=== PATIENT | male | born 1995 | race Caucasian/White ===

== ENCOUNTER 2016-09-10 18:52 | Emergency (ER) | payer MEDICAID ==
[2016-09-10] MEDS ORDERED: DIPH/PERTUSS(ACELL)/TETANUS VAC/PF 0.5 ML SYR (>=10YO) IM ONE (19:42)
[2016-09-10] MEDS ORDERED: HYDROCODONE/ACETAMINOPHEN 5-325 MG TABLET PO ONE (19:43)
--- NOTE | 2016-09-10 19:54 | ER Document Report ---
ED Wound - General Chief Complaint: Laceration Stated Complaint: LEFT HAND INJURY Time Seen by Provider: 09/10/16 19:37 Mode of Arrival: Ambulatory Information source: Patient Notes: Pt is a 20 year old male who presents to the ER today for laceration to left thumb with razor blade that he accidentally cut himself with while doing some andra. He does not know when his last tetanus booster is. TRAVEL OUTSIDE OF THE [place] IN LAST 30 DAYS: No Past Medical History - General Information source: Patient - Social History Smoking Status: Unknown if Ever Smoked Chew tobacco use (# tins/day): No Frequency of alcohol use: None Drug Abuse: None Family History: Reviewed & Not Pertinent Patient has suicidal ideation: No Patient has homicidal ideation: No Renal/ Medical History: Denies: Hx Peritoneal Dialysis - Immunizations Hx Diphtheria, Pertussis, Tetanus Vaccination: No Review of Systems - Review of Systems Constitutional: No symptoms reported EENT: No symptoms reported Cardiovascular: No symptoms reported Respiratory: No symptoms reported Gastrointestinal: No symptoms reported Genitourinary: No symptoms reported Male Genitourinary: No symptoms reported Musculoskeletal: No symptoms reported Skin: See HPI Hematologic/Lymphatic: No symptoms reported Neurological/Psychological: No symptoms reported Physical Exam - Vital signs Vitals: Temp Pulse Resp BP Pulse Ox 98.5 F 105 H 18 121/75 100 09/10/16 19:03 09/10/16 19:03 09/10/16 19:03 09/10/16 19:03 09/10/16 19:03 - Notes Notes: PHYSICAL EXAMINATION: GENERAL: Well-appearing and in no acute distress. HEAD: Atraumatic, normocephalic. EYES: Pupils equal round and reactive to light, extraocular movements intact, sclera anicteric, conjunctiva are normal. NECK: Normal range of motion, supple without lymphadenopathy LUNGS: CTAB and equal. No wheezes rales or rhonchi. HEART: Regular rate and rhythm without murmurs EXTREMITIES: Normal range of motion, no pitting edema. No cyanosis. NEUROLOGICAL: Cranial nerves grossly intact. Normal sensory/motor exams. PSYCH: Normal mood, normal affect. SKIN: Warm, Dry, normal turgor, left 1st digit with distal laceration including nail, into subcutanous tissue, not involving bone, portion of cut thumb missing Course - Re-evaluation Re-evalutation: 09/10/16 20:37 quick clot was applied for 20 mins, bleeding completely stopped. will give pt information for Dr. Collins, plastic surgeon, to follow up with as he does not have chunk of thumb that was cut off. - Vital Signs Vital signs: Temp Pulse Resp BP Pulse Ox 98.2 F 105 H 18 121/80 99 09/10/16 21:14 09/10/16 19:03 09/10/16 21:14 09/10/16 21:14 09/10/16 21:14 Discharge - Discharge Clinical Impression: Laceration of thumb Qualifiers: Encounter type: initial encounter Laterality: left Qualified Code(s): S61.012A - Laceration without foreign body of left thumb without damage to nail, initial encounter Condition: Stable Disposition: HOME, SELF-CARE Instructions: Laceration Care ([facility]), Tetanus Immunization Given ([facility]), Antibiotic Ointment Protection ([facility]) Additional Instructions: Return immediately for any new or worsening symptoms. Follow up with Dr. Collins, call tomorrow to make followup appointment. Prescriptions: Cephalexin Monohydrate [Keflex 500 mg Capsule] 500 mg PO BID 5 Days Mupirocin [Bactroban 2% Ointment 22 gm] 22 applic TP DAILY #1 tube Referrals: REGINE COLLINS MD [ACTIVE STAFF] - Follow up as needed
[2016-09-10] MEDS ORDERED: HYDROCODONE/ACETAMINOPHEN 5-325 MG 6 TAB/DSPK PO PRN (20:46)
[2016-09-10 21:15] VITALS: BP 121/80
== END 2016-09-10 21:12 | disposition home or self-care (01) ==
LOC: EDBD → ER 18:52
DX: S61.012A Laceration without foreign body of left thumb without damage to nail, initial encounter (principal); W45.8XXA Other foreign body or object entering through skin, initial encounter
CPT/HCPCS: 90471; 90715; 99282

== ENCOUNTER 2017-07-24 17:47 | Emergency (ER) | payer OTHER, MEDICAID ==
[2017-07-24 18:07] VITALS: BP 117/70
[2017-07-24] MEDS ORDERED: ACETAMINOPHEN 325 MG TABLET PO ONE (18:15)
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
== END 2017-07-24 19:00 | disposition home or self-care (01) ==
LOC: ER 17:47
DX: S80.211A Abrasion, right knee, initial encounter (principal); S00.81XA Abrasion of other part of head, initial encounter; V89.2XXA Person injured in unspecified motor-vehicle accident, traffic, initial encounter
CPT/HCPCS: 99284

== ENCOUNTER 2018-05-29 22:05 | Emergency (ER) | payer MEDICAID, OTHER ==
[2018-05-29] MEDS ORDERED: NORMAL SALINE 1000 ML 1,000 ML IV ONE (22:18)
--- NOTE | 2018-05-29 22:22 | ER Document Report ---
ED General - General Stated Complaint: POSSIBLE SEIZURE Time Seen by Provider: 05/29/18 22:12 Primary Care Provider: LEDY HINKLE MD [NO LOCAL MD] - 05/31/18 Notes: Patient is a 22-year-old male presents with a seizure. Was witnessed by a friend. She says she walked in the room and he was talking and then started to look like he was very hot and sweaty and then had a seizure lasting proximal me 3 minutes. When paramedics arrived he was postictal. Patient denies any previous history of seizure. Denies recent fevers or infections. He denies any pain other than mild headache. He denies any other complaints at this time. On exam he has multiple track mcgrath in both antecubital regions. Patient initially said the first was from a recent doctor's visit. I asked him about the other ones and he cannot give me an answer. He denies any drug use. The nurse then shows me where the paramedics mentioned that he had been using cocaine and meth. Patient still is not willing to come forward about this. He denies any medical problems. He denies being on any medications. TRAVEL OUTSIDE OF THE [place] IN LAST 30 DAYS: No - Related Data Allergies/Adverse Reactions: No Known Allergies Allergy (Unverified 06/29/16 19:58) Past Medical History - Social History Smoking Status: Never Smoker Frequency of alcohol use: None Drug Abuse: None Family History: Reviewed & Not Pertinent Renal/ Medical History: Denies: Hx Peritoneal Dialysis - Immunizations Hx Diphtheria, Pertussis, Tetanus Vaccination: No Review of Systems - Review of Systems Notes: My Normal Review Basic REVIEW OF SYSTEMS: CONSTITUTIONAL : Denies fever, chills, or sweats. Denies recent illness. EENT: Denies eye, ear, throat, or mouth pain or symptoms. Denies nasal or sinus congestion. CARDIOVASCULAR: Denies chest pain. RESPIRATORY: Denies cough, cold, or chest congestion. Denies shortness of breath, difficulty breathing, or wheezing. GASTROINTESTINAL: Denies abdominal pain. Denies nausea, vomiting, or diarrhea. Denies constipation. Last BM: MUSCULOSKELETAL: Denies neck or back pain or joint pain or swelling. SKIN: Denies rash or skin lesions. NEUROLOGICAL: Had a seizure. Mild headache. Denies weakness or paralysis or loss of use of either side. Denies problems with gait or speech. Denies sensory or motor loss. ALL OTHER SYSTEMS REVIEWED AND NEGATIVE. Physical Exam - Vital signs Vitals: Temp Resp 98.2 F 16 05/29/18 22:05 05/29/18 22:05 - Notes Notes: General Appearance: Well nourished, alert, cooperative, no acute distress, no obvious discomfort. Vitals: reviewed, See vital signs table. Head: no swelling or tenderness to the head Eyes: PERRL, EOMI, Conjuctiva clear Mouth: No decreasd moisture. No tongue biting. Throat: No tonsillar inflammation, No airway obstruction, No lymphadenopathy Neck: Supple, no neck tenderness, No thyromegaly Lungs: No wheezing, No rales, No rhonci, No accessory muscle use, good air exchange bilaterally. Heart: Normal rate, Regular rythm, No murmur, no rub Abdomen: Normal BS, soft, No rigidity, No abdominal tenderness, No guarding, no rebound, no abdominal masses, no organomegaly Extremities: strength 5/5 in all extremities, good pulses in all extremities, no swelling or tenderness in the extremities, no edema. Skin: warm, dry, appropriate color, multiple areas of track mcgrath in bilateral antecubital regions. Neuro: speech clear, oriented x 3, normal affect, responds appropriately to questions. Cranial nerves II through XII are intact. Distal sensation intact. Patient moves all extremities without difficulty. Course - Re-evaluation Re-evalutation: 05/29/18 22:51 Shoulder after getting talked to the patient decided that he no longer wanted to stay. I went back to the room and informed the patient I strongly meant he leaflets do a CT scan of his head to rule out bleeding or tumor or mass. Informed him if he has something like this likely of recurrent seizures and could potentially . Patient is awake and alert. Patient is able to answer questions and shows no signs of confusion. He is not postictal at this time. I do not feel I can hold him against his will. Despite me making my recommendations patient still does not want to stay in the ER and is requesting to leave AGAINST MEDICAL ADVICE. Patient will be discharged AGAINST MEDICAL ADVICE as he requests. Patient informed that we want what is best for him so he strongly encouraged him return to ER anytime as we are happy to reassess him. Dictation of this chart was performed using voice recognition software; therefore, there may be some unintended grammatical errors. - Vital Signs Vital signs: Temp Pulse Resp BP Pulse Ox 98.2 F 16 100 05/29/18 22:05 05/29/18 22:05 05/29/18 22:15 - Laboratory Result Diagrams: 05/29/18 22:24 05/29/18 22:24 Laboratory results interpreted by me: 05/29/18 22:24 WBC 11.2 H Lymphocytes % 50.5 H Absolute Lymphocytes 5.6 H Discharge - Discharge Clinical Impression: Seizure Condition: Stable Disposition: AGAINST MEDICAL ADVICE Additional Instructions: Seizure You have had a seizure. Seizure disorders (epilepsy) of one sort or another affect about one out of 50 people. The seizure occurs because of abnormal electrical activity in the brain. Seizures may be due to drugs and alcohol, strokes, brain injury, or infection. In the most common form of epilepsy, no cause can be found. You will require further evaluation to determine the cause of your seizure, and to determine whether anti-seizure medication is required. This follow-up testing is important, so please call us if you encounter problems with scheduling of tests or appointments. YOU SHOULD NOT DRIVE until released to do so by your physician. The law requires that seizures be reported to the mail truck driver's license bureau--a seizure while driving could be catastrophic. Call the doctor if seizures recur, or if you develop new symptoms such as fever, severe headache, stiff neck, confusion or increasing sleepiness, weakness or numbness, or visual problems. Please call to follow-up with a neurologist. Neurologist name is Dr. Hinkle. I suspect that you do have some history of IV drug abuse based on exam. These drugs can induce seizures and please avoid them at all costs. Do not drive until cleared by neurologist. As discussed with you, I cannot rule out the possibly of head bleed or tumor in your brain which can be life-threatening and be fatal. Can also cause recurrent seizures. We strongly recommend a CT scan and blood work. We respect your decision to make your own decisions. We want what is best for you and therefore wanted to return anytime as we are happy to take care of you and recheck you. Referrals: LEDY HINKLE MD [NO LOCAL MD] - 05/31/18
[2018-05-29 22:33] LABS: ABSOLUTE BASOPHILS # (AUTO) 0.1 10^3/uL (0.0-0.2); ABSOLUTE EOSINOPHILS # (AUTO) 0.1 10^3/uL (0.0-0.6); ABSOLUTE LYMPHOCYTES (AUTO) 5.6 10^3/uL (0.5-4.7); ABSOLUTE MONOCYTES (AUTO) 0.6 10^3/uL (0.1-1.4); ABSOLUTE NEUT (AUTO) 4.7 10^3/uL (1.7-8.2); BASOPHILS % (AUTO) 0.8 % (0-2); EOSINOPHILS % (AUTO) 1.2 % (0-6); HEMATOCRIT 43.6 % (37.9-51.0); LYMPHOCYTES % (AUTO) 50.5 % (13-45); MEAN CORPUSCULAR HEMOGLOBIN 29.4 pg (27.0-33.4); MEAN CORPUSCULAR HGB CONC 34.5 g/dL (32.0-36.0); MEAN CORPUSCULAR VOLUME 85 fl (80-97); MONOCYTES % (AUTO) 5.4 % (3-13); PLATELET COUNT 273 10^3/uL (150-450); RED BLOOD COUNT 5.11 10^6/uL (4.35-5.55); SEGMENTED NEUTROPHILS % (AUTO) 42.1 % (42-78); TOTAL CELLS COUNTED % (AUTO) 100 %; WHITE BLOOD COUNT 11.2 10^3/uL (4.0-10.5)
[2018-05-30 06:42] VITALS: BP 127/75
== END 2018-05-29 22:53 | disposition left against medical advice (07) ==
LOC: ER 22:05
DX: G40.909 Epilepsy, unspecified, not intractable, without status epilepticus (principal); R51 Headache
CPT/HCPCS: 36415; 85025; 99284